=== PATIENT | female | born 1990 | race Hispanic/Latino ===

== ENCOUNTER 2025-04-13 08:53 | Emergency (ER) | payer SELFPAY ==
[~2025-04-13] VITALS: Ht 165.1 cm; Wt 83.9 kg
[2025-04-13] MEDS: KETOROLAC TROMETHAMINE 30 MG/ML VIAL IM STA (10:14)
[2025-04-13 12:49] VITALS: PULSE 88; RESP 16; TEMP 97.9; O2SAT 99
== END 2025-04-13 12:50 | disposition home or self-care (01) ==
LOC: ER 09:38
DX: M25.511 Pain in right shoulder (principal); X50.9XXA Other and unspecified overexertion or strenuous movements or postures, initial encounter; Y92.89 Other specified places as the place of occurrence of the external cause
CPT/HCPCS: 73030; 96372; 99283; J1885